=== PATIENT | female | born 1930 | race Caucasian/White ===

== ENCOUNTER → 2016-12-01 | Outpatient (CLI) | payer MEDICARE ==
[~2016-12-01] MED LIST: ACYCLOVIR800 MG PO; ALLOPURINOL100 MG PO; AMBIEN5 MG PO; ANAPROX DS550 MG PO; ARIMIDEX1 MG PO; ARTHROTEC 50 MG PO; ASPIRIN; ASPIRIN81 M1 PO; BUMEX1 MG PO; CEFTIN500 MG PO; ERGOCALCIFER50000 IU PO; GABAPENTIN300 M1 PO; GLIPIZIDE XL5 MG PO; GLUCOTROL XL5 MG PO; IMDUR SA30 MG PO; INDOCIN50 MG PO; LEVOFLOXACIN500 MG PO; LISINOPRIL AND1 TA2; LISINOPRIL HCTZ1 TAB PO; LISINOPRIL/HCTZ1 TA2 PO; LOPRESSOR25 MG PO; LOPRESSOR50 MG PO; LOVASTATIN20 MG PO; METOPROLOL SR25 MG PO; NEURONTIN100 MG PO; NEURONTIN300 MG PO; NORCO 325 MG-51 TAB PO; OCUVITE1 TA1 PO; OCUVITE1 TAB PO; OMEPRAZOLE20 MG PO; OYSTER CALCIUM500 MG PO; PLAVIX75 MG PO; SERTRALINE100 MG PO; VALIUM5 MG PO; VITAMIN D1000 IU PO; VITAMIN D5000 I2 PO; ZETIA10 MG PO; ZOLOFT50 MG PO; ZOLPIDEM5 MG PO; Zestril,Prinivi40 MG PO
== END | disposition home or self-care (01) ==
LOC: RAD 14:15
DX: M19.012 Primary osteoarthritis, left shoulder (principal); C50.912 Malignant neoplasm of unspecified site of left female breast

== ENCOUNTER → 2016-12-29 | Outpatient (CLI) | payer MEDICARE ==
[2016-12-29 11:50] LABS: BASO # 0.1 10*3/uL (0.0-0.1); BASO % 0.6 % (0.0-1.0); EOS # 0.1 10*3/uL (0.0-0.4); EOS % 1.8 % (1.0-4.0); HEMATOCRIT 38.7 % (37.0-47.0); HEMOGLOBIN 13.1 g/dl (12.0-16.0); LYMPH % 24.8 % (27.0-41.0); MEAN CELL VOLUME 83.8 fl (81.0-99.0); MEAN CORPUSCULAR HGB 28.4 pg (27.0-31.0); MEAN CORPUSCULAR HGB CONC 33.9 g/dl (33.0-37.0); MEAN PLATELET VOLUME 8.8 fl (9.6-12.3); MONO # 0.6 10*3/uL (0.1-1.0); NEUT # 5.1 10*3/uL (2.3-7.9); NEUT % 64.7 % (47.0-73.0); PLATELET COUNT AUTOMATED 265 10*3/uL (130-400); RED BLOOD COUNT 4.62 10*6/uL (4.10-5.10); RED CELL DISTRI WIDTH 13.6 % (0-14.5); WHITE BLOOD COUNT 7.9 10*3/uL (4.8-10.8)
[2016-12-29 12:26] LABS: BUN 19 mg/dl (7-24); CEA 0.9 ng/mL; EST GLOM FILT AFRICAN AMERICAN > 60 ml/min
== END | disposition home or self-care (01) ==
LOC: LAB 11:11
PROVIDERS: Internal Medicine Hematology & Oncology
DX: C50.412 Malignant neoplasm of upper-outer quadrant of left female breast (principal)

== ENCOUNTER 2017-04-27 10:40 | Emergency (ER) | payer MEDICARE ==
[~2017-04-27] VITALS: Ht 167.6 cm; Wt 88.0 kg
[2017-04-27 10:45] VITALS: BP 157/57
[2017-04-27] MEDS ORDERED: ULTRAM50 MG PO (12:36)
== END 2017-04-27 12:57 | disposition home or self-care (01) ==
LOC: ED 10:40
DX: G89.29 Other chronic pain (principal); M25.551 Pain in right hip; Z98.890 Other specified postprocedural states; Z79.899 Other long term (current) drug therapy; Z88.0 Allergy status to penicillin; Z88.2 Allergy status to sulfonamides; Z88.5 Allergy status to narcotic agent

== ENCOUNTER → 2017-05-10 | Outpatient (CLI) | payer MEDICARE ==
[~2017-05-10] MED LIST changes: +ULTRAM50 MG PO
[2017-05-10 12:37] LABS: BASO % 0.4 % (0.0-1.0); EOS # 0.1 10*3/uL (0.0-0.4); EOS % 0.9 % (1.0-4.0); HEMATOCRIT 40.4 % (37.0-47.0); HEMOGLOBIN 13.8 g/dl (12.0-16.0); LYMPH # 1.9 10*3/uL (1.3-4.4); LYMPH % 20.5 % (27.0-41.0); MEAN CELL VOLUME 82.8 fl (81.0-99.0); MEAN CORPUSCULAR HGB 28.3 pg (27.0-31.0); MEAN CORPUSCULAR HGB CONC 34.2 g/dl (33.0-37.0); MEAN PLATELET VOLUME 8.8 fl (9.6-12.3); MONO # 0.7 10*3/uL (0.1-1.0); MONO % 7.3 % (3.0-9.0); NEUT # 6.5 10*3/uL (2.3-7.9); NEUT % 70.6 % (47.0-73.0); PLATELET COUNT AUTOMATED 264 10*3/uL (130-400); RED BLOOD COUNT 4.88 10*6/uL (4.10-5.10); RED CELL DISTRI WIDTH 13.3 % (0-14.5); WHITE BLOOD COUNT 9.2 10*3/uL (4.8-10.8)
== END | disposition home or self-care (01) ==
LOC: LAB 12:20
PROVIDERS: Internal Medicine Hematology & Oncology
DX: C50.412 Malignant neoplasm of upper-outer quadrant of left female breast (principal)

== ENCOUNTER → 2017-08-27 | Outpatient (CLI) | payer MEDICARE | END | disposition home or self-care (01) | LOC: ORTHO 03:52 | DX: M17.11 Unilateral primary osteoarthritis, right knee (principal) ==

== ENCOUNTER → 2017-09-17 | Outpatient (CLI) | payer MEDICARE | END | disposition home or self-care (01) | LOC: ORTHO 01:36 | DX: M17.12 Unilateral primary osteoarthritis, left knee (principal) ==

== ENCOUNTER 2018-07-07 12:11 | Emergency (ER) | payer MEDICARE ==
[~2018-07-07] VITALS: Ht 165.1 cm; Wt 81.6 kg
--- NOTE | ~2018-07-07 | EKG ---
[place], [place] ELECTROCARDIOGRAM REPORT NAME: JULIAN MANCINI I UNIT #: [id number] ROOM: DOCTOR: EPIPHANY DRAFT REPORT BIRTHDATE: [birth year] [facility] Test Date: 2018-07-07 Test Time: 12:40:02 Pat Name: JULIAN MANCINI Department: Room: Gender: F Doctor Osteopathic: : 1930 Requested By: LEONEL DE JESUS Order Number: [id number] Reading MD: Jay Sepulveda MD Measurements Intervals [place] Rate: 76 P: 38 MD: 161 QRS: -5 QRSD: 160 T: 3 QT: 462 QTc: 520 Interpretive Statements Sinus rhythm Atrial premature complexes Right bundle branch block No previous ECG available for comparison Electronically Signed On 07-07-2018 18:29:19 PST by Jay Sepulveda MD CM:EKGRPT:ELECTROCARDIOGRAM REPORT [id number] LEONEL LEMUS DRAFT REPORT LEONEL DE JESUS M.D.
[2018-07-07 12:11] VITALS: BP 177/78
[2018-07-07 12:34] LABS: BASO % 0.5 % (0.0-1.0); EOS # 0.1 10*3/uL (0.0-0.4); EOS % 1.8 % (1.0-4.0); HEMATOCRIT 43.4 % (37.0-47.0); HEMOGLOBIN 14.5 g/dl (12.0-16.0); LYMPH # 1.5 10*3/uL (1.3-4.4); LYMPH % 19.4 % (27.0-41.0); MEAN CELL VOLUME 85.4 fl (81.0-99.0); MEAN CORPUSCULAR HGB 28.5 pg (27.0-31.0); MEAN CORPUSCULAR HGB CONC 33.4 g/dl (33.0-37.0); MEAN PLATELET VOLUME 9.5 fl (9.6-12.3); MONO # 0.5 10*3/uL (0.1-1.0); MONO % 6.4 % (3.0-9.0); NEUT # 5.6 10*3/uL (2.3-7.9); NEUT % 71.6 % (47.0-73.0); PLATELET COUNT AUTOMATED 221 10*3/uL (130-400); RED BLOOD COUNT 5.08 10*6/uL (4.10-5.10); RED CELL DISTRI WIDTH 13.1 % (0-14.5); WHITE BLOOD COUNT 7.8 10*3/uL (4.8-10.8)
[2018-07-07 12:52] LABS: ALBUMIN 3.8 gm/dl (3.1-4.5); ALKALINE PHOSPHATASE 54 U/L (45-117); BUN 15 mg/dl (7-24); CHLORIDE 100 mmol/L (98-107); CREATININE 0.91 mg/dL (0.55-1.02); POTASSIUM 3.6 mmol/L (3.5-5.1); SGOT/AST 18 IU/L (3-35); SGPT/ALT 22 U/L (12-78); SODIUM 137 mmol/L (136-145); TOTAL PROTEIN 7.6 gm/dL (6.4-8.2)
[2018-07-07 14:31] LABS: BILIRUBIN NEGATIVE (NEGATIVE); BLOOD TRACE-INTACT (NEGATIVE); CLARITY SL CLOUDY (CLEAR); COLOR YELLOW (YELLOW); GLUCOSE NEGATIVE (NEGATIVE); KETONE NEGATIVE (NEGATIVE); LEUKO ESTERASE 3+ (NEGATIVE); NITRITE POSITIVE (NEGATIVE); UROBILINOGEN 0.2 E.U./dl (0.2-1.0)
[2018-07-07 14:38] LABS: BACTERIA 4+; WBC TNTC wbc/hpf (0-5)
[2018-07-07] MEDS ORDERED: MACROBID100 M1 PO (15:45)
[2018-10-24] MEDS ORDERED: MACROBID100 M1 PO (13:35)
[2018-11-01] MEDS ORDERED: NEURONTIN100 MG PO (14:09)
[2018-11-01] MEDS ORDERED: VALIUM5 MG PO (14:09)
[2018-11-01] MEDS ORDERED: METOPROLOL SUCC25 M2 PO (14:09)
[2018-11-04] MEDS ORDERED: CEPHALEXIN500 M1 PO (16:02)
[2019-01-15] MEDS ORDERED: ALBUTEROL2.5 MG/0.5 INH (10:46)
[2019-01-17] MEDS ORDERED: NEURONTIN100 MG PO (12:55)
[2019-01-17] MEDS ORDERED: VIBRAMYCIN100 MG PO (12:55)
[2019-01-17] MEDS ORDERED: VALIUM5 MG PO (12:55)
== END 2018-07-07 15:48 | disposition home or self-care (01) ==
LOC: ED 12:11
PROVIDERS: Emergency Medicine
DX: N39.0 Urinary tract infection, site not specified (principal); R06.02 Shortness of breath; I25.10 Atherosclerotic heart disease of native coronary artery without angina pectoris; E11.9 Type 2 diabetes mellitus without complications; J44.9 Chronic obstructive pulmonary disease, unspecified; I11.0 Hypertensive heart disease with heart failure; I50.9 Heart failure, unspecified; Z88.0 Allergy status to penicillin; Z88.2 Allergy status to sulfonamides; Z88.5 Allergy status to narcotic agent; Z79.84 Long term (current) use of oral hypoglycemic drugs; Z79.899 Other long term (current) drug therapy

== ENCOUNTER 2018-07-13 12:07 | Inpatient (IN) | payer MEDICARE ==
[~2018-07-13] VITALS: Ht 165.1 cm; Wt 88.5 kg
[2018-07-13] VITALS (7 sets, daily range): BP systolic 38–178; BP diastolic 65–108
--- NOTE | ~2018-07-13 | EKG ---
[place], [place] ELECTROCARDIOGRAM REPORT NAME: JULIAN MANCINI I UNIT #: [id number] ROOM: 526 DOCTOR: MARIAH DRAFT REPORT BIRTHDATE: [birth year] [facility] Test Date: 2018-07-13 Test Time: 12:43:07 Pat Name: JULIAN MANCINI Department: Room: 526 Gender: F Appliance Fixer: : 1930 Requested By: COOPER GRIGGS Order Number: [id number] Reading MD: Twin [place] MD Measurements Intervals [place] Rate: 67 P: 31 VA: 180 QRS: -20 QRSD: 151 T: 2 QT: 456 QTc: 482 Interpretive Statements Sinus rhythm Probable left atrial enlargement Right bundle branch block Left ventricular hypertrophy Compared to ECG 07/07/2018 12:40:02 Left ventricular hypertrophy now present Atrial premature complex(es) no longer present Electronically Signed On 07-14-2018 7:11:10 PST by Twin [place] MD CM:EKGRPT:ELECTROCARDIOGRAM REPORT [id number] COOPER SOTO DRAFT REPORT COOPER GRIGGS DO
--- NOTE | ~2018-07-13 | CON ---
[place], [place] REPORT OF CONSULTATION NAME: JULIAN MANCINI I UNIT #: [id number] ROOM: 526 DOCTOR: KERLINE BUCIO MD BIRTHDATE: [birth year] DOS: 07/13/2018 HISTORY OF PRESENT ILLNESS: This is an 87-year-old -Thai woman with a history of coronary artery disease. She had stenting of the circumflex and the RCA in the remote past and the last catheterization was done in this hospital early in 2007, which showed patent stents in the circumflex and the RCA. She has had a CVA, has diabetes, essential hypertension, "congestive heart failure," breast cancer with left mastectomy in the remote past, she has a cholecystectomy and had intracranial aneurysm treated with clips. She came to the Emergency Department, because of dizziness and weakness. She noticed her lower lip to be swollen and little numb, so she could concerned that she may be having a stroke, but she also had a sensation where her head was spinning and she had some nausea with it and was a little clammy, that episode has occurred many times. Recently, she fell backwards and hit the sink, but did not pass out. She has had this spinning sensation on a regular basis for quite a long time and has fallen before, but has not passed out. She also claims she gets up fluttering sensation for a few seconds. This often occurs at night, not when she is walking around and she has not had any PND, orthopnea, or swelling of the lower extremities and no anterior chest pain. She does not smoke nor does she drink alcoholic beverages. PHYSICAL EXAMINATION: GENERAL: This reveals a patient who is moderately obese. She is very pleasant, alert, rather quiet. She is not anemic, not jaundiced. There is no cyanosis. VITAL SIGNS: Temperature is normal. Pulse is 76 and regular. Blood pressure is 155/74. Blood pressure has been high since admission; the highest was 178/91. NECK: JVP is normal. There is no carotid bruit. HEART: There is no cardiomegaly, no murmurs are present. EXTREMITIES: She has excellent pedal pulses and no edema of the lower extremities. RESPIRATORY: She is not tachypneic. LUNGS: Auscultation reveals very decent breath sounds bilaterally, but a lot of crackles in the lower one third of the lungs. ABDOMEN: Supple, nontender. LABORATORY DATA: An ECG showed normal sinus rhythm and complete right bundle branch block. Monitor continues to show normal sinus rhythm. She had a CT scan of the head, which was unremarkable. Chest x-ray was read as showing increased interstitial markings, thought to be chronic. IMPRESSION: 1. Coronary artery disease, this is asymptomatic. 2. This patient has a recurrent acute vertigo, which is causing the patient's loss of balance and falls. She does not have syncope. RECOMMENDATION: 1. The patient does not require any cardiac workup. [place], [place] REPORT OF CONSULTATION NAME: JULIAN MANCINI I UNIT #: [id number] ROOM: 526 DOCTOR: KERLINE BUCIO MD BIRTHDATE: [birth year] 2. I think it is worth giving her meclizine 25 t.i.d. to see her symptoms would nel and if they do, would be clearly useful since she has fallen many times. KERLINE BUCIO MD CM:CONSTR:REPORT OF CONSULTATION 1840 07/14/18 1425 interface
--- NOTE | ~2018-07-13 | PR ---
[place], [place] PROGRESS NOTE NAME: JULIAN MANCINI I UNIT #: [id number] ROOM: 526 DOCTOR: VANESSA HOOD MD BIRTHDATE: [birth year] DOS: 07/15/2018 SUBJECTIVE: A 24-hour events noted. Discussed with the nursing staff. The patient is very well known to me. The patient was seen by Dr. Arias, who was covering for me yesterday. I reviewed the echocardiogram today. The patient admitted with dizziness, particularly upon standing. She is not orthostatic. She is mostly hypertensive. Echo revealed an excellent ejection fraction. She denies any chest discomfort, shortness of breath or palpitations. REVIEW OF SYSTEMS: A 6-8 systems reviewed and unremarkable. HEENT: Unremarkable. NECK: Supple, no JVD. LUNGS: Clear. HEART: Sounds are regular. ABDOMEN: Soft, nontender. LABORATORY DATA: Sodium 137, potassium 3.9, creatinine is 0.7, hemoglobin 13.8, hematocrit 42.6. Electrolytes are normal. IMPRESSION: The patient admitted with syncope, chronic obstructive pulmonary disease exacerbation, urinary tract infection and hypertension. PLAN: Continue the present medication. Monitor the blood pressure very closely. Agree with adding Norvasc if needed. Pressure today is 150/60. Increase activity. Echo showed an excellent ejection fraction and I will followup upon discharge. VANESSA HOOD MD CM:PNTRANS 0712 [id number] VANESSA HOOD MD 07/15/18 1341 interface
[~2018-07-13 12:07] MED LIST changes: +MACROBID100 M1 PO
[2018-07-13 12:43] LABS: BASO # 0.1 10*3/uL (0.0-0.1); BASO % 0.6 % (0.0-1.0); EOS # 0.2 10*3/uL (0.0-0.4); EOS % 2.3 % (1.0-4.0); HEMATOCRIT 41.9 % (37.0-47.0); HEMOGLOBIN 14.2 g/dl (12.0-16.0); LYMPH # 1.6 10*3/uL (1.3-4.4); LYMPH % 21.2 % (27.0-41.0); MEAN CELL VOLUME 85.7 fl (81.0-99.0); MEAN CORPUSCULAR HGB CONC 33.9 g/dl (33.0-37.0); MEAN PLATELET VOLUME 9.1 fl (9.6-12.3); MONO # 0.6 10*3/uL (0.1-1.0); MONO % 7.1 % (3.0-9.0); NEUT # 5.3 10*3/uL (2.3-7.9); NEUT % 68.5 % (47.0-73.0); PLATELET COUNT AUTOMATED 220 10*3/uL (130-400); RED BLOOD COUNT 4.89 10*6/uL (4.10-5.10); RED CELL DISTRI WIDTH 13.2 % (0-14.5); WHITE BLOOD COUNT 7.7 10*3/uL (4.8-10.8)
[2018-07-13 12:53] LABS: ACT PARTIAL THROMBO TIME 23.3 SECONDS (20.8-31.5)
[2018-07-13 12:58] LABS: ALBUMIN 3.7 gm/dl (3.1-4.5); ALKALINE PHOSPHATASE 60 U/L (45-117); BUN 14 mg/dl (7-24); CHLORIDE 101 mmol/L (98-107); CREATININE 0.84 mg/dL (0.55-1.02); LIPASE 108 U/L (73-393); SGOT/AST 19 IU/L (3-35); SGPT/ALT 21 U/L (12-78); SODIUM 136 mmol/L (136-145); TOTAL PROTEIN 7.5 gm/dL (6.4-8.2)
--- NOTE | 2018-07-13 13:34 | NUR ---
THE PATIENT CAN NOT PROVIDE A URINE SAMPLE OF YET
--- NOTE | 2018-07-13 15:24 | NUR ---
THE PATIENT HAS BEEN GIVEN A ROOM ASSIGNMENT OF 503-1. THE ROOM HAS TO BE CLEANED FIRST
[2018-07-13 15:59] LABS: BILIRUBIN NEGATIVE (NEGATIVE); BLOOD NEGATIVE (NEGATIVE); CLARITY CLEAR (CLEAR); COLOR YELLOW (YELLOW); GLUCOSE NEGATIVE (NEGATIVE); KETONE TRACE (NEGATIVE); LEUKO ESTERASE 1+ (NEGATIVE); NITRITE NEGATIVE (NEGATIVE); PH 6.5 (5.0-9.0); UROBILINOGEN 0.2 E.U./dl (0.2-1.0)
[2018-07-13 16:07] LABS: RBC 0-2 rbc/hpf (0-2); WBC 16-20 wbc/hpf (0-5)
[2018-07-13 16:08] LABS: BACTERIA 2+
--- NOTE | 2018-07-13 16:58 | NUR ---
CALLED [facility] AWARE PT MEDS UPDATED.
--- NOTE | 2018-07-13 18:15 | NUR ---
CALLED DR. COTE OFFICE FOR CONSULT. THEY SAID DR. WHITAKER IS COVERING, THEY WILL BEEP HIM.
--- NOTE | 2018-07-13 19:50 | NUR ---
PHYSICAL THERAPY Nursing screen received. PT orders also received. Thank you. Kirsten Sommer,PT
--- NOTE | 2018-07-13 20:00 | NUR ---
PT. AWAKE & ALERT. ORTHOSTATIC BLOOD PRESSURES DONE ON PATIENT. PATIENT STATES THAT SHE IS A LITTLE BIT DIZZY WHEN GETTING UP BUT FEELS LESS DIZZY THIS AFTERNOON. ASSIST OF 2 UP TO TAKE STANDING BLOOD PRESSURE & PULSE. ALSO MEDICATED WITH ANTIVERT & TYLENOL AT THIS TIME. ASSISTED BACK TO BED. CELINA LÓPEZ PUT ON PATIENT. BED ALARM TURNED ON & BED IN LOW POSITION. CALL LIGHT WITHIN REACH.
[2018-07-13 21:37] LABS: BILIRUBIN NEGATIVE (NEGATIVE); BLOOD NEGATIVE (NEGATIVE); CLARITY CLEAR (CLEAR); COLOR YELLOW (YELLOW); GLUCOSE NEGATIVE (NEGATIVE); KETONE NEGATIVE (NEGATIVE); LEUKO ESTERASE NEGATIVE (NEGATIVE); NITRITE NEGATIVE (NEGATIVE); UROBILINOGEN 0.2 E.U./dl (0.2-1.0)
--- NOTE | 2018-07-13 21:40 | NUR ---
UA/URINE CULTURE SENT BY
[2018-07-13 21:45] LABS: BACTERIA TRACE; EPITHELIAL CELLS 0-2; RBC 0-2 rbc/hpf (0-2)
[2018-07-14] VITALS (7 sets, daily range): BP systolic 130–185; BP diastolic 52–86
--- NOTE | 2018-07-14 02:20 | NUR ---
PT. UPSET DUE TO ROOMMATE SNORING, TALKING ON PHONE & KEEPING HER AWAKE. PT. MOVED TO 526. ALSO MEDICATED WITH VALIUM AT THIS TIME PER PT'S REQUEST FOR ANXIETY & ASSISTED BY THIS RN UP TO BATHROOM WITH USE OF WALKER. PT.'S GAIT SLOW & STEADY. LINENS ALSO CHANGED AT THIS TIME. ASSISTED BACK TO BED & CALL LIGHT WITHIN REACH. BED ALARM ON.
--- NOTE | 2018-07-14 04:00 | NUR ---
ASLEEP; RESPIRATIONS EASY & UNLABORED ON ROOM AIR. VALIUM GIVEN EARLIER APPARENTLY EFFECTIVE. BED ALARM INTACT; CALL LIGHT WITHIN REACH.
[2018-07-14 06:26] LABS: HEMATOCRIT 42.6 % (37.0-47.0); HEMOGLOBIN 13.8 g/dl (12.0-16.0); LYMPH # 0.9 10*3/uL (1.3-4.4); LYMPH % 14.1 % (27.0-41.0); MEAN CELL VOLUME 86.4 fl (81.0-99.0); MEAN CORPUSCULAR HGB CONC 32.4 g/dl (33.0-37.0); MEAN PLATELET VOLUME 9.7 fl (9.6-12.3); MONO # 0.1 10*3/uL (0.1-1.0); MONO % 1.7 % (3.0-9.0); NEUT # 5.6 10*3/uL (2.3-7.9); NEUT % 83.4 % (47.0-73.0); PLATELET COUNT AUTOMATED 213 10*3/uL (130-400); RED BLOOD COUNT 4.93 10*6/uL (4.10-5.10); RED CELL DISTRI WIDTH 13.1 % (0-14.5); WHITE BLOOD COUNT 6.7 10*3/uL (4.8-10.8)
--- NOTE | 2018-07-14 06:34 | NUR ---
DR. BLACKBURN NOTIFIED OF PT'S ELEVATED BP; OKAY TO GIVEN ZESTRIL NOW.
[2018-07-14 06:35] LABS: ALBUMIN 3.3 gm/dl (3.1-4.5); ALKALINE PHOSPHATASE 56 U/L (45-117); BUN 14 mg/dl (7-24); CHLORIDE 100 mmol/L (98-107); CHOLESTEROL 203 mg/dL (<200); CREATININE 0.74 mg/dL (0.55-1.02); FREE T4 1.04 ng/dl (0.76-1.46); HDL CHOLESTEROL 71 mg/dl (40-60); LDL CHOLESTEROL 100 mg/dL (9-159); POTASSIUM 3.9 mmol/L (3.5-5.1); SGOT/AST 15 IU/L (3-35); SGPT/ALT 19 U/L (12-78); SODIUM 137 mmol/L (136-145); TOTAL PROTEIN 7.5 gm/dL (6.4-8.2); TRIGLYCERIDES 158 mg/dl (<150); VLDL CHOLESTEROL 32 mg/dL (6-40)
[2018-07-14 06:42] LABS: THYROID STIM HORMONE (HS) 0.528 uIU/ml (0.358-4.75)
[2018-07-14 08:08] LABS: VITAMIN D, 25-HYDROXY 47.7 ng/mL (30-100)
--- NOTE | 2018-07-14 08:15 | NUR ---
Nursing screen received and Occupational Therapy referral received. Thank you for this referral. Antonia Hayes OTR/l
--- NOTE | 2018-07-14 09:12 | NUR ---
PT SITTING UP EATING BREAKFAST. NO DISTRESS NOTED/ WILL MONITOR
--- NOTE | 2018-07-14 11:34 | NUR ---
DR BRENDA GRIGGS AND DR LINDSAY NOTIFIED OF ORTHOSTATIC BPS
--- NOTE | 2018-07-14 12:08 | NUR ---
Can Line Examiner in to talk to patient. Patient states lives at HOME with SON. There are NO steps in the home. Physician: JOANN HENRY Pharmacy: [facility] health services: NONE AT THIS TIME Patient's level of ADLs: MINIMAL ASSIST Patient has working utilities: YES DME: [facility] Follow-up physician's appointment after d/c: WILL BE MADE BY HOSPITALIST NURSE DIRECTOR ON DISCHARGE Does patient want to access PORTAL?: NO Discharge plan PT LIVES AT HOME WITH SON, STATES SON GETS HER MEALS AND HELPS HER. PT STATES SHE HAS [facility] IN THE PAST AND IS REQUESTING THEM AGAIN. REFERRAL WILL BE SENT. SHE HAS A WALKER AND A CANE AT HOME AND HAS NO OTHER NEEDS PER HER AND FAMILY. WILL CONTINUE TO FOLLOW.. MAMIE SEGOVIA
--- NOTE | 2018-07-14 12:27 | NUR ---
REFERRAL SENT TO [facility].
--- NOTE | 2018-07-14 14:30 | NUR ---
dr jaclyn pitts notified of 2pm vital signs
--- NOTE | 2018-07-14 15:56 | NUR ---
Occupational Therapy evaluation completed on 5 with full eval to follow. Precautions include fall risk, new ww use, IV UE, low vision deficits. Patient is low complexity level [id number] via chart review, testing and evaluation.Patient educated to use lift chair in the home only when needed and to use BLE strength to perform sit to stand to maintain and strengthen muscles. Recommend OT per POC and home health SN,OT,PT. Thank you for this referral. Antonia Hayes OTR/l
--- NOTE | 2018-07-14 19:42 | NUR ---
24 HR chart check completed.
[2018-07-15] VITALS: BP 159/61
[2018-07-15 06:26] LABS: BASO % 0.1 % (0.0-1.0); HEMATOCRIT 41.2 % (37.0-47.0); HEMOGLOBIN 13.1 g/dl (12.0-16.0); LYMPH # 1.2 10*3/uL (1.3-4.4); MEAN CELL VOLUME 87.7 fl (81.0-99.0); MEAN CORPUSCULAR HGB 27.9 pg (27.0-31.0); MEAN CORPUSCULAR HGB CONC 31.8 g/dl (33.0-37.0); MEAN PLATELET VOLUME 9.7 fl (9.6-12.3); MONO # 0.4 10*3/uL (0.1-1.0); NEUT % 86.4 % (47.0-73.0); PLATELET COUNT AUTOMATED 230 10*3/uL (130-400); RED CELL DISTRI WIDTH 13.4 % (0-14.5); WHITE BLOOD COUNT 11.6 10*3/uL (4.8-10.8)
[2018-07-15 06:31] LABS: BUN 19 mg/dl (7-24); CHLORIDE 101 mmol/L (98-107); CREATININE 0.97 mg/dL (0.55-1.02); POTASSIUM 4.3 mmol/L (3.5-5.1); SODIUM 139 mmol/L (136-145)
[2018-07-15 08:00] VITALS: BP 142/76; BP 154/70
[2018-07-15 08:01] VITALS: BP 142/76
--- NOTE | 2018-07-15 11:15 | NUR ---
OT NOTE Pt was seen this A.M. 1:1 for 20 minute Ot session. Upon arrival pt was supine in bed, pt identified by name and . Pt had no complaints at this time. Pt transferred supine to sit EOB with SBA with reports of feeling dizzy once up on the EOB. Educated pt on slowing down and visual fixation technique. Pt then completed functional mobility into the bathroom with CGA and use of w/w for UE support. Pt required education throughout to improve walker safety and safety awareness with turns. Pt transferred on/off standard commode with SBA. Pt then completed functional mobility back to EOB where she transferred sit to supine with SBA. Pt was left supine in bed with call light in hand, tray table in place, and family in the room. Continue with rec d/C plan to home with home health. CHAS [place]
[2018-07-15 12:00] VITALS: BP 132/50
--- NOTE | 2018-07-15 14:51 | NUR ---
PHYSICAL THERAPY PAtient reports she just returned to bed and she is fatigued. Reports sitting in chair for a long period of time. Also reports (I) throughout ROOM prn. Will attempt PT evaluation at a a later date. Thank you for this referral. Kirsten Sommer,PT
[2018-07-15 16:00] VITALS: BP 147/55
[2018-07-15 20:00] VITALS: BP 143/57
--- NOTE | 2018-07-15 23:30 | NUR ---
PT REFUSED BLOOD SUGAR CHECK AT THIS TIME. WILL CONTINUE TO MONITOR PT
[2018-07-16] VITALS: BP 140/61
[2018-07-16 08:00] VITALS: BP 140/78; BP 150/66
[2018-07-16 12:00] VITALS: BP 154/67
[2018-07-16] MEDS ORDERED: HYDR12.5C PO (13:53)
[2018-07-16] MEDS ORDERED: LISINOPRIL30 MG PO (13:53)
[2018-07-16] MEDS ORDERED: LEVAQUIN500 M2 PO (13:53)
[2018-07-16] MEDS ORDERED: MECLIZINE HCL25 M2 PO (13:53)
[2018-07-16] MEDS ORDERED: PREDNISONE10 MG PO (13:53)
--- NOTE | 2018-07-16 14:45 | NUR ---
Discharge instructions reviewed with patient/family. Patient receptive and verbalizes understanding. Follow-up care arranged. Written instructions given to patient/family. IV site and night monitor removed. Pt transported to [facility] via wheelchair. BERE MARCOS
--- NOTE | 2018-07-18 17:05 | NUR ---
OCCUPATIONAL THERAPY CO-SIGN I approve of the Occupational Therapy notes written above. AMBROSIO JAY OTR/[place]
== END 2018-07-16 14:45 | disposition home health service (06) | DRG 193 ==
LOC: ED 12:07 → EDHOLD 14:12 → 5E 14:12
PROVIDERS: Emergency Medicine; Internal Medicine; Registered Nurse; ADMIT Internal Medicine
DX: J18.9 Pneumonia, unspecified organism (principal); J96.01 Acute respiratory failure with hypoxia; N30.00 Acute cystitis without hematuria; E44.0 Moderate protein-calorie malnutrition; J44.1 Chronic obstructive pulmonary disease with (acute) exacerbation; J44.0 Chronic obstructive pulmonary disease with (acute) lower respiratory infection; I95.1 Orthostatic hypotension; E11.65 Type 2 diabetes mellitus with hyperglycemia; I25.10 Atherosclerotic heart disease of native coronary artery without angina pectoris; I50.9 Heart failure, unspecified; I11.0 Hypertensive heart disease with heart failure; Z88.0 Allergy status to penicillin; Z88.2 Allergy status to sulfonamides; Z88.5 Allergy status to narcotic agent; Z86.73 Personal history of transient ischemic attack (TIA), and cerebral infarction without residual deficits; Z79.899 Other long term (current) drug therapy; Z68.32 Body mass index [BMI] 32.0-32.9, adult

== ENCOUNTER → 2019-08-01 | Outpatient (CLI) | payer MEDICARE ==
[~2019-08-01] MED LIST changes: +ALBUTEROL2.5 MG/0.5 INH; +CEPHALEXIN500 M1 PO; +HYDR12.5C PO; +LEVAQUIN500 M2 PO; +LISINOPRIL30 MG PO; +MECLIZINE HCL25 M2 PO; +METOPROLOL SUCC25 M2 PO; +PREDNISONE10 MG PO; +VIBRAMYCIN100 MG PO
== END | disposition home or self-care (01) ==
LOC: MAMMO 00:30 → CARD 08:00 → MAMMO 13:30
DX: R92.8 Other abnormal and inconclusive findings on diagnostic imaging of breast (principal); C50.912 Malignant neoplasm of unspecified site of left female breast; Z85.3 Personal history of malignant neoplasm of breast

== ENCOUNTER → 2020-02-08 | Outpatient (CLI) | payer MEDICARE | END | disposition home or self-care (01) | LOC: COVID19 01:37 | DX: Z03.818 Encounter for observation for suspected exposure to other biological agents ruled out (principal); R69 Illness, unspecified ==